=== PATIENT | male | born 1990 | race Caucasian/White ===

== ENCOUNTER 2019-08-25 12:57 | Emergency (ER) | payer OTHER ==
[~2019-08-25] VITALS: Ht 180.3 cm; Wt 105.9 kg
[~2019-08-25 12:57] MED LIST: AMOX1TAB58 PO; FLUO40CA2 PO; METR500T PO
[2019-08-25] MEDS ORDERED: IV NORMAL SALINE 1000ML BAG 1,000 ML IV ONE (13:45)
[2019-08-25 13:48] LABS: BASO % 1 % (0-3); EOS # 0.1 x10^3/uL (0.0-0.7); EOS % 2 % (0-3); HEMATOCRIT 43.6 % (39.0-53.0); HEMOGLOBIN 15.1 g/dL (13.0-17.5); LYMPH # 1.7 x10^3/uL (1.0-4.8); LYMPH % 33 % (24-48); MEAN CORPUSCULAR HEMOGLOBIN 31 pg (25-35); MEAN CORPUSCULAR HGB CONC 35 g/dL (31-37); MEAN CORPUSCULAR VOLUME 88 fL (79-100); MONO # 0.5 x10^3/uL (0.0-1.1); MONO % 9 % (0-9); NEUT # 2.8 x10^3/uL (1.8-7.7); NEUT % 55 % (31-73); PLATELET COUNT 195 x10^3/uL (140-400); RED BLOOD COUNT 4.93 x10^6/uL (4.30-5.70); RED CELL DISTRIBUTION WIDTH 13.1 % (11.5-14.5); WHITE BLOOD COUNT 5.1 x10^3/uL (4.0-11.0)
--- NOTE | 2019-08-25 13:56 | PHYS DOC ---
Past Medical History Past Medical History: Anxiety, Depression (OMID OBANDO MADISON) Past Surgical History: No Surgical History (GISELLAOMID WALLACE) Smoking Status: Never Smoker Alcohol Use: Occasionally Drug Use: None (OMID OBANDO MADISON) General Adult EDM: Chief Complaint: DIZZY/LIGHT HEADED HPI: HPI: Patient is a 28 year old male who presents with dizzy spells that have been on and off for the past 2 weeks along with diarrhea that has been on and off for the past 2 weeks. Patient states today he woke up to go to work and felt fine when he arrived to work he started feeling weak and throughout the day at work he became dizzy that slowly increased until he was no longer able to work and had to leave to come to the emergency department. Patient states he did not lose consciousness although he felt as if he would if he was to stay at work the whole day. Patient states he has not had any diarrhea today or yesterday reporting having normal bowel movements with normal stool consistency both days. Patient denies any pain. Patient reports taking a 0.5 mg lorazepam for anxiety this morning prior to the dizzy sensations starting. Patient also reports taking a daily fluoxetine 40 mg for depression and anxiety. Patient denies any recent fever chills, patient denies any changes in vision, patient denies any tunnel vision during dizziness or during sensations of syncope in the past 2 weeks. Patient denies any nasal congestion or sore throat, any cough or shortness of breath, any chest pain. Patient does state that his lower extremities become edematous if he does not wear his compression garments while working all day. Patient denies any abdominal pain, nausea, vomiting, blood in his stools, current diarrhea. Patient also denies constipation. Patient denies any current dysuria, increased urination, or increased fluid intake. Patient denies any back pain or pain in his joints. Patient denies any skin rashes, however does complain of some mosquito bites to his legs and trunk area from working out in the yard the past few days. Patient denies having any tics, tick bites, or removing any ticks from his body. Patient currently denies any swollen glands, however patient did state he had a swollen gland in his neck about a week ago that resolved within 2 days. Patient states that he suffers from depression and anxiety which is somewhat controlled with medications prescribed by his family physician. Patient denies any current suicidal or homicidal ideations. Patient states no one else living in his home with the same symptoms. (OMID OBANDO APRN) Review of Systems: Review of Systems: Constitutional: Denies fever or chills. Eyes: Denies change in visual acuity. HENT: Denies nasal congestion or sore throat. Respiratory: Denies cough or shortness of breath. Cardiovascular: Denies chest pain, complains of lower extremity edema if he does not wear his compression garments at work. GI: Denies abdominal pain, nausea, vomiting, bloody stools or current diarrhea, did report diarrhea spells off and on over the past 2 weeks. Patient denies constipation : Denies dysuria. Musculoskeletal: Denies back pain or joint pain. Integument: Denies rash. Reports mosquito bites to lower extremities and trunk over the past few days from working outside in the yard. Neurologic: Denies headache, focal weakness or sensory changes. Patient reports dizziness, denies syncope. Endocrine: Denies polyuria or polydipsia. Lymphatic: Denies swollen glands, however did report a swollen gland in his neck approximately 1 week ago that lasted 2 days then resolved. Psychiatric: Reports ongoing depression and anxiety that is currently being treated with medications by his primary care provider. (OMID OBANDO APRN) Heart Score: Risk Factors: Risk Factors: DM, Current or recent (<one month) smoker, HTN, HLP, family history of CAD, obesity. Risk Scores: Score 0 - 3: 2.5% MACE over next 6 weeks - Discharge Home Score 4 - 6: 20.3% MACE over next 6 weeks - Admit for Clinical Observation Score 7 - 10: 72.7% MACE over next 6 weeks - Early Invasive Strategies (OMID OBANDO APRN) Family History: Family History: Patient reports a history of hypertension, CAD, mental disorders, adenocarcinoma, large cell cancer from his mother's side. Patient states his dad has no health problems. (OMID OBANDO APRN) Current Medications: Patient reports taking 0.5 mg lorazepam as needed for anxiety, also takes daily 40 mg fluoxetine for depression/anxiety. Current Medications Medications (Trade) Dose Ordered Sig/Eveline Start Time Stop Time Status Last Admin Dose Admin Sodium Chloride 1,000 ml @ 1,000 mls/hr 1X ONCE 08/25/19 13:45 7/12/20 14:44 (OMID OBANDO APRN) Allergies: Allergies: Patient denies any allergies to medications. Allergies Coded Allergies Type Severity Reaction Last Updated Verified No Known Drug Allergies 10/06/17 No (OMID OBANDO APRN) Physical Exam: PE: Constitutional: Well developed, well nourished, no acute distress, non-toxic appearance. HENT: Normocephalic, atraumatic, bilateral external ears normal, oropharynx moist, no oral exudates, nose normal. Eyes: PERRLA, EOMI, conjunctiva normal, no discharge. Pupils 4 mm Neck: Normal range of motion, no tenderness, supple, no stridor. Cardiovascular:Heart rate regular rhythm, no murmur heart sounds S1-S2, no abnormalities noted per auscultation. Lungs & Thorax: Bilateral breath sounds clear to auscultation all lung deluna. Abdomen: Bowel sounds normal, soft, no tenderness, no masses, no pulsatile masses. Skin: Warm, dry, no erythema, no rash. Multiple skin lesions to lower extremities and trunk consistent with mosquito/insect bites. No drainage or infectious process noted Back: No tenderness, no CVA tenderness. Extremities: No tenderness, no cyanosis, no clubbing, ROM intact, no edema to lower extremities, patient wearing compression garments that were removed just prior to physical examination. Neurologic: Alert and oriented X 3, normal motor function, normal sensory fu nction, no focal deficits noted. Psychologic: Affect anxious, judgement normal, mood normal. (OMID OBANDO APRN) Current Patient Data: Vital Signs: Vital Signs Date Time Temp Pulse Resp B/P (MAP) Pulse Ox O2 Delivery O2 Flow Rate FiO2 08/25/19 13:28 98.6 82 20 143/88 (106) 98 Room Air 98.6 (OMID OABNDO APRN) EKG: EKG: EKG performed at 1313 today shows normal sinus rhythm without ectopy no STEMI noted reviewed by Dr. Barfield in the emergency department. (OMID OBANDO APRN) Radiology/Procedures: Radiology/Procedures: PROCEDURE: CT HEAD WO CONTRAST CT HEAD INDICATION: Dizziness COMPARISON: None Available. Exposure: One or more of the following individualized dose reduction techniques were utilized for this examination: 1. Automated exposure control 2. Adjustment of the mA and/or kV according to patient size 3. Use of iterative reconstruction technique TECHNIQUE: 5 mm contiguous axial images were obtained from the skull base to the vertex in both bone and soft tissue algorithm. FINDINGS: No abnormal attenuation within the brain parenchyma. No evidence of acute intracranial hemorrhage. No extra-axial fluid collections. No mass effect or midline shift. Ventricular size is appropriate. Basal cisterns are patent. No fractures identified.Heaton-white differentiation is preserved.Globes and orbits are within normal limits. Paranasal sinuses and mastoid air cells are clear. IMPRESSION: No acute intracranial findings. Electronically signed by: Alfonso Arteaga MD (08/25/2019 2:09 PM) [id number] DICTATED and SIGNED BY: ALFONSO ARTEAGA MD DATE: 08/25/191408 (OMID OBANDO APRN) Course & Med Decision Making: Course & Med Decision Making Pertinent Labs and Imaging studies reviewed. (See chart for details) 28-year-old male patient presents emergency department today complaining of off-and-on dizziness for the past 2 weeks along with off-and-on diarrhea for the past 2 weeks. Although he denies diarrhea for the past 2 days reporting normal stool with normal consistency without blood. Today patient states he went to work at 9 AM this morning and progressively became weak and dizzy he initially attributed this to his ongoing anxiety and took a prescribed 1/2 mg lorazepam. Patient states that it his dizziness and weakness became so bad he had to leave work and come to the emergency department. Vital signs were reviewed and lab work reviewed non-concerning for infectious process. CT scan was performed of the head and read by radiologist as negative. Dizziness most likely associated with patient's longstanding history of anxiety and depressive disorder least likely neurological or infectious process. Discussed findings with patient who was relieved after hearing his CAT scan of head was negative and stated his symptoms have resolved. Discussed with patient to follow-up with primary care physician if symptoms return, also discussed with patient return to ER precautions and concerns. Patient was agreeable with DC to home instructions, has no further questions or concerns. (OMID OBANDO APRN) Dragon Disclaimer: Dragon Disclaimer: This electronic medical record was generated, in whole or in part, using a voice recognition dictation system. (OMID OBANDO APRN) Departure Departure Impression: Primary Impression: Dizzy spells Additional Impression: Anxiety Referrals: UNKNOWN PCP NAME (PCP) Patient Instructions: Dizziness Additional Instructions: Follow-up with your primary doctor soon regarding dizzy spells. Return to ER for further concerns. Justicifation of Admission Dx: Justifications for Admission: Justification of Admission Dx: N/A (OMID OBANDO APRN) Attending Signature Attending Signature I have reviewed the PA/SPINNER TENDER's note and plan of care. I was available for consultation as needed during the patient's visit in the emergency department. I agree with the clinical impression, plan, and disposition. (OMID BARFIELD DO) OMID OBANDO APRN Aug 25, 2019 13:56 OMID BARFIELD DO Aug 26, 2019 06:32
[2019-08-25 14:01] LABS: CALCIUM 8.7 mg/dL (8.5-10.1); GFR 87.7; POTASSIUM 4.1 mmol/L (3.5-5.1)
[2019-08-25 14:07] LABS: ALBUMIN 4.1 g/dL (3.4-5.0); ALBUMIN/GLOBULIN RATIO 1.3 (1.0-1.7); TOTAL BILIRUBIN 0.5 mg/dL (0.2-1.0); TOTAL PROTEIN 7.2 g/dL (6.4-8.2)
--- NOTE | 2019-08-25 14:12 | RAD ---
CT HEAD INDICATION: Dizziness COMPARISON: None Available. Exposure: One or more of the following individualized dose reduction techniques were utilized for this examination: 1. Automated exposure control 2. Adjustment of the mA and/or kV according to patient size 3. Use of iterative reconstruction technique TECHNIQUE: 5 mm contiguous axial images were obtained from the skull base to the vertex in both bone and soft tissue algorithm. FINDINGS: No abnormal attenuation within the brain parenchyma. No evidence of acute intracranial hemorrhage. No extra-axial fluid collections. No mass effect or midline shift. Ventricular size is appropriate. Basal cisterns are patent. No fractures identified.Heaton-white differentiation is preserved.Globes and orbits are within normal limits. Paranasal sinuses and mastoid air cells are clear. IMPRESSION: No acute intracranial findings. Electronically signed by: Alfonso Arteaga MD (08/25/2019 2:09 PM) [id number]
[2019-08-25 14:26] LABS: BILIRUBIN,URINE NEGATIVE (NEG); CLARITY,URINE CLEAR; COLOR,URINE YELLOW; NITRITE,URINE NEGATIVE (NEG); PH,URINE 6.5 (<5.0-8.0); PROTEIN,URINE NEGATIVE (NEG-TRACE); UROBILINOGEN,URINE 0.2 mg/dL (0.2 mg/dL)
[2019-08-25 14:32] LABS: BARBITURATES NEG (NEG); BENZODIAZEPINES NEG (NEG); CANNABINOIDS NEG (NEG); COCAINE NEG (NEG); METHADONE NEG (NEG); OPIATES NEG (NEG); PHENCYCLIDINE NEG (NEG)
[2019-08-25 14:34] LABS: AMPHETAMINE/METHAMPHETAMINE NEG (NEG)
[2019-08-25 14:43] LABS: BACTERIA,URINE 0 /HPF (0-FEW); RBC,URINE 0 /HPF (0-2); SQUAMOUS EPITHELIAL CELL,UR OCC /LPF; WBC,URINE 0 /HPF (0-4)
[2019-08-25 16:16] VITALS: BP 124/75
== END 2019-08-25 16:20 | disposition home or self-care (01) ==
LOC: ER 12:57
DX: R42 Dizziness and giddiness (principal); F41.9 Anxiety disorder, unspecified; R19.7 Diarrhea, unspecified; F32.9 Major depressive disorder, single episode, unspecified
CPT/HCPCS: 36415; 70450; 80053; 80307; 81001; 85025; 96360; 96361; 99285; J7030